=== PATIENT | male | born 1990 | race Caucasian/White ===

== ENCOUNTER 2020-10-10 22:40 | Emergency (ER) | payer OTHER, SELFPAY ==
[2020-10-10 22:48] VITALS: BP 152/81; PULSE 99; RESP 16; O2SAT 96; BMI 24.3
--- NOTE | 2020-10-10 23:46 | PC.NURSE ---
patient search was completed at this time by Security
--- NOTE | 2020-10-11 00:29 | ED.GENADULT ---
HPI - General Adult General Chief complaint: ETOH/Substance Use Stated complaint: seeking detox Time Seen by Provider: 10/10/20 23:21 Source: patient Mode of arrival: ambulatory Limitations: no limitations History of Present Illness HPI narrative: Patient presents to ED for repeat detox. Patient is requesting detox from heroin and cocaine. Patient states he has read on the methadone program. Patient states he wants to get back in to [facility]. Patient states he was there for 3 days and walked out on his own accord is self for feeling the program. Related Data Allergies Allergy/AdvReac Type Severity Reaction Status Date / Time haloperidol [From Haldol] AdvReac Involuntary Verified 10/10/20 22:56 Spasms Review of Systems Review of Systems: Yes all other systems are reviewed and are negative Constitutional: Constitutional: Reports as per HPI and Reports no additional constitutional complaints Eyes: Eyes: Reports as per HPI and Reports no additional eye complaints ENT: Reports system reviewed and no additional complaints, except as documented and Reports as per HPI Cardiovascular: Cardiovascular: Reports as per HPI and Reports no additional cardiovascular complaints Respiratory: Respiratory: Reports as per HPI and Reports no additional respiratory complaints Gastrointestinal: Gastrointestinal: Reports as per HPI and Reports no additional gastrointestinal complaints Genitourinary: Genitourinary: Reports no additional male genitourinary complaints and Reports as per HPI Musculoskeletal: Musculoskeletal: Reports no additional musculoskeletal complaints and Reports as per HPI Neurologic: Reports system reviewed and no additional complaints, except as documented and Reports as per HPI Psychiatric: Psychiatric: Reports no additional psychiatric complaints and Reports as per HPI [facility] Past Medical History Medical History (Updated 10/11/20 @ 01:16 by WOLF Bailey) Anxiety Depression HSV (herpes simplex virus) infection Opiate addiction PTSD (post-traumatic stress disorder) Social History Social History Advance Directives: No Advance Directives Information Provided: No Physical Exam Vital Signs: Vital Signs: Last Vital Signs Pulse 99 10/10/20 22:48 Resp 16 10/10/20 22:48 BP 152/81 H 10/10/20 22:48 Pulse Ox 96 10/10/20 22:48 Body Mass Index 24.3 Const: General: cooperative, healthy appearing, comfortable, no acute distress, well developed, alert, awake and Physically active Orientation/consciousness: patient oriented x3 HENMT: Head: Yes normal to inspection, Yes No palpable skull fracture present, Yes normocephalic, Yes atraumatic and No abrasion Eyes: General: appearance normal, both eyes and all related structures Neck: Neck: Yes normal visual inspection, Yes full ROM, Yes no lymphadenopathy, Yes no meningeal signs, Yes trachea midline, Yes supple and No tender Chest: Chest palpation & inspection: normal inspection of the chest and normal palpation of entire chest wall Resp: Effort & Inspection: normal respiratory effort and able to speak in complete sentences Auscultation: clear to auscultation bilaterally Cardio: Jugular venous distension: no JVD Heart sounds: S1 normal heart sound present and S2 normal heart sound present GI: Inspection: Yes normal to inspection and No abdominal wall ecchymosis Palpation (GI): Soft to palpation, not firm, nontender, no guarding and not rigid : General: No CVA tenderness and Yes no CVA tenderness Back/Spine/Pelvis: Back: no CVA tenderness, No CVA tenderness and No back tenderness Skin: General skin exam: no rashes or lesions noted and elasticity normal Neuro: General: patient oriented x3, no meningeal signs and CN's II-XI intact bilaterally Cranial nerves: Yes CN's II-XII intact bilaterally Extrem: General: Yes normal to inspection and Yes full ROM Psych: Appearance: grossly normal, well kempt and not disheveled Course Course Course Narrative: Recall her care team consulted to talk to patient. Reevaluation(s) Reevaluation #1: Care team consulted had other spoke with patient and given detox resources. She spoke with patient and he will get a bed in the morning at the detox center she given referral for. Patient is agreeable to plan. Patient will be discharged Medical Decision Making [facility] Narrative Medical decision making narrative: Seeking detox Discharge Plan Discharge Clinical Impression: Opiate dependence Patient Disposition: Home, Self-Care Instructions: Cocaine Abuse (ED), Opioid Use Disorder (ED) Additional Instructions: Return to the ED for any suicidal/homicidal ideation, auditory/visual hallucinations, physical complaints or any other concerning symptoms. Please follow-up with the detox center you given referral for. Print Language: Macedonian
--- NOTE | 2020-10-11 02:29 | MHC.CARE ---
Late entry: CARE team support requested for pt who self presented to ED requesting detox. Pt reported that he had been at [facility] detox for 3 days and left earlier today. Pt received a methadone dose prior to discharge from the facility. Pt is hoping to get back into a detox program, preferably [facility] again. This sign writer letterer or painter put pt on the waitlist for [facility] and encouraged pt to call at 8am. Pt was also given a list of detox facilities and pamphlet for [facility]. Pt very pleasant and grateful for the resources.
== END 2020-10-11 02:22 | disposition home or self-care (01) ==
PROVIDERS: Emergency Provider Emergency Medicine; PCP Obstetrics & Gynecology
DX: F11.20 Opioid dependence, uncomplicated (principal); F14.10 Cocaine abuse, uncomplicated; F41.9 Anxiety disorder, unspecified; F43.10 Post-traumatic stress disorder, unspecified
CPT/HCPCS: 99283

== ENCOUNTER 2020-12-17 14:26 | Emergency (ER) | payer OTHER, MEDICARE, SELFPAY ==
[2020-12-17 14:38] VITALS: BP 124/79; BP 180/80; PULSE 82; PULSE 88; RESP 16; O2SAT 95; BMI 27.8
--- NOTE | 2020-12-17 15:09 | ED.GENADULT ---
HPI - General Adult General Chief complaint: Psychiatric Symptoms Stated complaint: CRISIS Time Seen by Provider: 12/17/20 14:46 Source: patient Mode of arrival: ambulatory Limitations: no limitations History of Present Illness HPI narrative: 30-year-old male with a past medical history of substance abuse, PTSD, anxiety, depression here after altercation with family. The patient tells me that he was in detox but left voluntarily yesterday after being treated for 1 week for opiate abuse with methadone. He tells me his last dose of methadone was several days ago and it was 50 mg. He was on a methadone taper at that time. He tells me he went to his brother's house to product picker some things today and too surprising his family. They became very upset that he had left detox without letting them know. He then told me that after grabbing some things he started to walk away but they started to follow him with their car. He then told his mom to leave him alone or something bad could have been. Patient tells me that this was missed interpreted as a threat to walk out into traffic. Patient denies SI or HI. Denies hallucinations. Denies current substance use. No physical complaints. Related Data Home Medications Medication Instructions Recorded Confirmed quetiapine [Seroquel] 25 mg PO DAILY PRN 12/17/20 12/17/20 Allergies Allergy/AdvReac Type Severity Reaction Status Date / Time haloperidol [From Haldol] AdvReac Involuntary Verified 10/10/20 22:56 Spasms Review of Systems Review of Systems: Yes all other systems are reviewed and are negative Constitutional: Constitutional: Reports no additional constitutional complaints, Denies body ache(s), Denies chills, Denies fever(s), Denies headache(s) and Denies weakness Eyes: Eyes: Reports no additional eye complaints and Denies change in vision ENT: Reports system reviewed and no additional complaints, except as documented, Denies dizziness, Denies headache(s), Denies nasal congestion, Denies nasal discharge and Denies neck pain Cardiovascular: Cardiovascular: Reports no additional cardiovascular complaints, Denies chest pain, Denies leg edema and Denies dyspnea Respiratory: Respiratory: Reports no additional respiratory complaints, Denies cough and Denies dyspnea Gastrointestinal: Gastrointestinal: Reports no additional gastrointestinal complaints, Denies abdominal pain, Denies diarrhea, Denies nausea and Denies vomiting Genitourinary: Genitourinary: Denies urinary incontinence Musculoskeletal: Musculoskeletal: Reports no additional musculoskeletal complaints, Denies back pain, Denies arthralgias, Denies joint swelling, Denies neck pain, Denies numbness and Denies tingling Integumentary/Breasts: Skin/Breast: Reports system reviewed and no additional complaints, except as docu and Denies rash Neurologic: Reports system reviewed and no additional complaints, except as documented, Denies Abnormal speech present, Denies dizziness, Denies headache(s), Denies numbness, Denies tingling and Denies weakness Psychiatric: Psychiatric: Denies anxiety, Denies depression, Denies homicidal ideation and Denies suicidal ideation [facility] Past Medical History Attestation statement: The following information was validated with the patient. Source: nursing notes reviewed Medical History Anxiety Depression HSV (herpes simplex virus) infection Opiate addiction PTSD (post-traumatic stress disorder) Social History Social History Advance Directives: No Advance Directives Information Provided: No Physical Exam Vital Signs: Vital Signs: Last Vital Signs Pulse 88 12/17/20 14:38 Resp 16 12/17/20 14:38 BP 124/79 12/17/20 14:38 Pulse Ox 95 12/17/20 14:38 Body Mass Index 27.8 Const: Other: Unkept appearing General: cooperative Orientation/consciousness: patient oriented x3 Limitations: no limitations HENMT: Head: Yes normal to inspection Ears: hearing grossly normal bilaterally General nose exam: Normal external nose present Face and sinus: Yes normal facial exam Mouth: Normal oral and palatal mucosa present Throat: Yes posterior oropharynx normal Eyes: General: appearance normal, both eyes and all related structures Pupils: Equal, round and reactive pupils present Neck: Neck: Yes normal visual inspection Chest: Chest palpation & inspection: normal inspection of the chest Resp: Effort & Inspection: normal respiratory effort Auscultation: clear to auscultation bilaterally Cardio: Rate: regular rate Rhythm: regular rhythm Peripheral pulses: Peripheral pulses 2+ throughout GI: Inspection: Yes normal to inspection Palpation (GI): Soft to palpation and nontender Auscultation: normal bowel sounds Back/Spine/Pelvis: Thoracic/Lumbar Spine: thoracic and lumbar spine normal to inspection Skin: General skin exam: no rashes or lesions noted Neuro: General: patient oriented x3, no focal motor deficits and normal sensation to monofilament Cranial nerves: Yes Equal, round and reactive pupils present Cognition (Neuro): normal cognition Speech: No Abnormal speech present Gait exam (Neuro): Normal gait present Motor exam (neuro): 5/5 motor strength present throughout Extrem: General: Yes normal to inspection Course Course Course Narrative: 30-year-old male here after verbal altercations family. Per EMS report the patient made threats to walk into traffic. The patient denies this and tells me it was misinterpreted. He denies any SI or physical complaints. Will check [facility] and have Care team to get involved to collect collateral information and speak to patient. 1700-Sign out to care team pending above Medical Decision Making Medical Records Medical records reviewed: Yes I reviewed the patient's medical records. Lab Data Lab results reviewed: Yes I reviewed the patient's lab results. Labs: Lab Results 12/17/20 Range/Units 15:02 Urine Opiates Screen POSITIVE H (Not Detect) Ur Barbiturates Screen Not Detected (Not Detect) Ur Phencyclidine Scrn Not Detected (Not Detect) Ur Amphetamines Screen Not Detected (Not Detect) U Benzodiazepines Scrn Not Detected (Not Detect) Urine Cocaine Screen POSITIVE H (Not Detect) U Marijuana (THC) Screen Not Detected (Not Detect) Discharge Plan Discharge Prescriptions: No Action quetiapine [Seroquel] 25 mg Tablet 25 mg PO DAILY PRN (Reason: Anxiety) RF: 0
[2020-12-17 15:34] LABS: Amphetamine Screen Urine Not Detected (Not Detect); Barbiturates, Urine Not Detected (Not Detect); Benzodiazepines Screen Urine Not Detected (Not Detect); Cannabinoid Screen Urine Not Detected (Not Detect); Cocaine Screen Urine POSITIVE (Not Detect); Opiate Screen Urine POSITIVE (Not Detect); Phencyclidine Screen Urine Not Detected (Not Detect)
--- NOTE | 2020-12-17 17:28 | MHC.CARE ---
CARE team consult requested for pt who arrived to ED via EMS after his family called PD for concerns re: statements pt made. Per report- pt went to his mother's house to get some of his belongings, surprising his family members there because they had expected him to still be in detox at the [facility]. Pt stated that he left AMA earlier in the week, relapsed a few days later, and has decided that he needs to move out of the area in order to get into recovery. When pt arrived, he reported that his mother and brother were following him out of the house and arguing with him, at which point pt reported saying stop following me, I'm trying to leave and I don't want to get hit by a car. Pt speculated that because he said this in Wallisian to his mother, which she translated in North Korean to his brother who wasn't within earshot, that it was a miscommunication that caused his family to believe that he was planning to get hit by a car. Pt denied having any thoughts of suicide and , urges to harm self or others, and history of such. Pt reported that when he was at the [facility] he was restarted on methadone, which he receives maintenance doses through [facility] [place] (did not specify if [place] or [place] location). Pt has missed his last few doses due to him relapsing a few days after leaving treatment. Pt shared that he is planning on getting a hotel in [place] and self presenting to a [place] hospital there for treatment, with hopes of eventually getting down to [place] where his daughter lives with her mother. Pt declined recovery resources at this time. This resume writer encouraged pt to utilize the [facility], where he receives his care locally, in facilitating a transfer/admission to the facility nearest to where pt is planning to relocate to. There are no safety concerns at this time. Pt was offered a ride home, which he declined. ED provider updated re: outcome of consult, with plan for discharge from ED.
== END 2020-12-17 17:21 | disposition home or self-care (01) ==
PROVIDERS: Nurse Practitioner Family; Emergency Provider Emergency Medicine Emergency Medical Services; PCP Internal Medicine
DX: F33.1 Major depressive disorder, recurrent, moderate (principal); F43.10 Post-traumatic stress disorder, unspecified; F11.10 Opioid abuse, uncomplicated; Z79.899 Other long term (current) drug therapy; Z71.51 Drug abuse counseling and surveillance of drug abuser; Z63.79 Other stressful life events affecting family and household
CPT/HCPCS: 80307; 99284

== ENCOUNTER 2021-07-10 19:17 | Emergency (ER) | payer OTHER, MEDICARE, SELFPAY ==
[2021-07-10 20:24] VITALS: BP 127/70; PULSE 88; RESP 16; TEMP 36.6; O2SAT 98; BMI 25.1
--- NOTE | 2021-07-10 21:27 | ED.GENADULT ---
HPI - General Adult General Chief complaint: General Medical Stated complaint: seeking detox Time Seen by Provider: 07/10/21 21:27 Source: patient Mode of arrival: ambulatory Limitations: no limitations History of Present Illness HPI narrative: 31-year-old male with a past medical history of substance abuse, PTSD, anxiety, depression presenting to the emergency department to request rehab. He tells me that he has been using heroin and cocaine IV for the past 5 years and he feels like he needs to stop because it is getting in the way with his daily life, is causing issues with his family, any tells me that with the holiday season coming he feels like this is the right time to do this. He typically uses 2 bundles of heroin a day, and 1 g of cocaine. He is a current daily smoker and smokes 1 pack per day. He does not consume alcohol. He has been to detox once, and he was sober 3 months afterwards, he feels like detox would benefit him at this point in his life. He also tells me that he wants to work hard on becoming sober because he has a daughter in [place] he would like to see. He denies visual, auditory and tactile hallucinations. He denies suicidal and homicidal ideation. He has no medical complaints at this time. Onset (ago): year(s) (5) Radiation: non-radiation Relieving factors: none Exacerbating factors: none Associated symptoms: denies other symptoms Treatments prior to arrival: none Related Data Home Medications Medication Instructions Recorded Confirmed quetiapine 25 mg tablet (Seroquel) 25 mg PO DAILY PRN 12/17/20 12/17/20 Allergies Allergy/AdvReac Type Severity Reaction Status Date / Time haloperidol [From Haldol] AdvReac Involuntary Verified 10/10/20 22:56 Spasms Review of Systems Review of Systems: Constitutional : No Fever, No Chills ENT/Mouth : No sore throat, No Rhinorrhea Eyes: No Eye Pain, No Swelling, No Redness Cardiovascular : No Chest Pain, No SOB Respiratory : No Cough, No Sputum Gastrointestinal : No Nausea, No Vomiting, No Diarrhea, No abdominal Pain Genitourinary : No Dysuria, No Hematuria Musculoskeletal : No joint pain, No Myalgias, No Joint Swelling Skin : No Skin Lesions, No rash Neuro : No Weakness, No Numbness Psych : No Anxiety, No Depression, No SI/HI/AH/VH Heme/Lymph: No Bruising, No Bleeding Endocrine : No Polyuria, No Polydipsia All other systems reviewed and are negative Yes all other systems are reviewed and are negative [facility] Past Medical History Attestation statement: The following information was validated with the patient. Source: old records reviewed and nursing notes reviewed Medical History Anxiety Depression HSV (herpes simplex virus) infection Opiate addiction PTSD (post-traumatic stress disorder) Social History Social History Advance Directives: No Advance Directives Information Provided: No Physical Exam Vital Signs: Vital Signs: Last Vital Signs Temp 97.9 F 07/10/21 20:24 Pulse 88 07/10/21 20:24 Resp 16 07/10/21 20:24 BP 127/70 07/10/21 20:24 Pulse Ox 98 07/10/21 20:24 BMI result Body Mass Index 25.1 VSS Appearance: Alert.? Oriented X3.? No acute distress.? Head: Normocephalic, atraumatic, no step-offs or deformities Eyes: Pupils equal, round and reactive to light.? ENT: Pharynx normal.? Neck: Normal inspection.? Neck supple.? CVS: Normal heart rate and rhythm.? Pulses normal.? Respiratory: No respiratory distress.? Breath sounds normal.? Abdomen: Soft and nontender.? Skin: Skin warm and dry.? Normal skin color.? Normal skin turgor.? Extremities: No lower extremity edema.5/5 strength to bilateral upper and lower extremities Back: No midline tenderness, no C-spine tenderness, full range of motion, no CVA tenderness bilaterally Neuro: Oriented X 3.? No motor deficit.? No sensory deficit. CN 2-12 intact Course Reevaluation(s) Reevaluation #1: Patient is COVID negative. Urine toxicology positive for opiates, fentanyl, benzodiazepines and cocaine. Carline from CARE team reached out to [facility] and all are Either close, full or the admission have to be coordinated in the morning. At this time patient will be placed in physician observation to allow more time for care team to help place patient in a detox facility. At time that physician observation was started patient was, and cooperative and had no medical complaints. Physical examination benign. Cranial nerves 2-12 intact. Time: 22:47 Reevaluation #2: No acute laboratory abnormalities. Medical Decision Making MDM Narrative Medical decision making narrative: 2133 31 yo M pmhx substance abuse, PTSD, anxiety, depression presents to ED seeking detox from heroin and cocaine. Physical examination benign. Cranial nerves 2-12 intact. Plan at this time is to obtain a urine toxicology and COVID test. Medical Records Medical records reviewed: Yes I reviewed the patient's medical records. Lab Data Lab results reviewed: Yes I reviewed the patient's lab results. Result diagrams: 07/10/21 23:16 07/10/21 23:16 Labs: Lab Results 07/10/21 07/10/21 07/10/21 Range/Units 22:14 22:14 23:16 WBC 6.8 (4.8-10.8) X10*3/uL RBC 4.46 L (4.60-5.80) X10*6/uL Hgb 13.4 L (14.0-18.0) g/dl Hct 39.4 L (42.0-52.0) % MCV 88.3 (80.0-98.0) fL MCH 30.0 (27.0-33.0) pg MCHC 34.0 (31.0-36.0) g/dl RDW 12.9 (11.0-16.0) % Plt Count 292 (160-400) X10*3/uL MPV 9.1 L (9.4-12.4) fL Immature Gran % (Auto) 0.3 (0.0-0.4) % Neut % (Auto) 49.8 (45-73) % Lymph % (Auto) 38.2 (20-40) % [place] % (Auto) 9.4 (2-11) % Eos % (Auto) 1.9 (0-4) % Baso % (Auto) 0.4 (0-2) % Lymph # (Auto) 2.6 (1.2-4.9) X10*3/uL [place] # (Auto) 0.6 (0.1-1.2) X10*3/uL Eos # (Auto) 0.1 (0.0-0.4) X10*3/uL Baso # (Auto) 0.0 (0.0-0.2) X10*3/uL Abs Immat Gran (auto) 0.02 (0.00-0.03) X10*3/uL Absolute Neuts (auto) 3.4 (2.0-8.3) x10*3/uL Absolute Nucleated RBC 0.000 (0.0-0.012) X10*3/uL Nucleated RBC % (auto) 0.0 (0.0-0.2) /100WBC Sodium (135-145) mmol/L Potassium (3.3-5.1) mmol/L Chloride (96-108) mmol/L Carbon Dioxide (22-29) mmol/L Anion Gap (12-20) BUN (9-16) mg/dL Creatinine (0.5-1.4) mg/dL Estim Creat Clear Calc Estimated GFR Random Glucose (60-115) mg/dL Calcium (8.4-10.2) mg/dL Urine Opiates Screen POSITIVE H (Not Detect) Urine Fentanyl Screen POSITIVE H (Not Detect) Ur Barbiturates Screen Not Detected (Not Detect) Ur Phencyclidine Scrn Not Detected (Not Detect) Ur Amphetamines Screen Not Detected (Not Detect) U Benzodiazepines Scrn POSITIVE H (Not Detect) Urine Cocaine Screen POSITIVE H (Not Detect) U Marijuana (THC) Screen Not Detected (Not Detect) COVID-19 (CAL) Negative (Negative) COVID-19 Clin Com See Note 07/10/21 Range/Units 23:16 WBC (4.8-10.8) X10*3/uL RBC (4.60-5.80) X10*6/uL Hgb (14.0-18.0) g/dl Hct (42.0-52.0) % MCV (80.0-98.0) fL MCH (27.0-33.0) pg MCHC (31.0-36.0) g/dl RDW (11.0-16.0) % Plt Count (160-400) X10*3/uL MPV (9.4-12.4) fL Immature Gran % (Auto) (0.0-0.4) % Neut % (Auto) (45-73) % Lymph % (Auto) (20-40) % [place] % (Auto) (2-11) % Eos % (Auto) (0-4) % Baso % (Auto) (0-2) % Lymph # (Auto) (1.2-4.9) X10*3/uL [place] # (Auto) (0.1-1.2) X10*3/uL Eos # (Auto) (0.0-0.4) X10*3/uL Baso # (Auto) (0.0-0.2) X10*3/uL Abs Immat Gran (auto) (0.00-0.03) X10*3/uL Absolute Neuts (auto) (2.0-8.3) x10*3/uL Absolute Nucleated RBC (0.0-0.012) X10*3/uL Nucleated RBC % (auto) (0.0-0.2) /100WBC Sodium 140 (135-145) mmol/L Potassium 3.9 (3.3-5.1) mmol/L Chloride 104 (96-108) mmol/L Carbon Dioxide 29 (22-29) mmol/L Anion Gap 11 L (12-20) BUN 14 (9-16) mg/dL Creatinine 0.77 (0.5-1.4) mg/dL Estim Creat Clear Calc 143.5 Estimated GFR > 60 Random Glucose 99 (60-115) mg/dL Calcium 9.2 (8.4-10.2) mg/dL Urine Opiates Screen (Not Detect) Urine Fentanyl Screen (Not Detect) Ur Barbiturates Screen (Not Detect) Ur Phencyclidine Scrn (Not Detect) Ur Amphetamines Screen (Not Detect) U Benzodiazepines Scrn (Not Detect) Urine Cocaine Screen (Not Detect) U Marijuana (THC) Screen (Not Detect) COVID-19 (CAL) (Negative) COVID-19 Clin Com Critical Care Time Critical Care Time Critical Care Time: No Discharge Plan Discharge Clinical Impression: Opiate dependence, continuous, Cocaine abuse Patient Disposition: Still a Patient Instructions: Cocaine Abuse (ED), Opioid Use Disorder (ED) Additional Instructions: Take your medications as prescribed. If you were prescribed antibiotics today, it is important that you take your medication to their entirety, do not skip any doses, do not finish them early. Follow-up with your primary care provider this week. Return to the emergency department with new or worsening symptoms. In case of emergency call 911 Prescriptions: No Action quetiapine [Seroquel] 25 mg Tablet 25 mg PO DAILY PRN (Reason: Anxiety) RF: 0 Referrals: Spenser Majano [Primary Care Provider] - 2 days Stand Alone Forms: Work/School Release
[2021-07-10 22:38] LABS: Amphetamine Screen Urine Not Detected (Not Detect); Barbiturates, Urine Not Detected (Not Detect); Benzodiazepines Screen Urine POSITIVE (Not Detect); Cannabinoid Screen Urine Not Detected (Not Detect); Cocaine Screen Urine POSITIVE (Not Detect); Fentanyl, urine POSITIVE (Not Detect); Opiate Screen Urine POSITIVE (Not Detect); Phencyclidine Screen Urine Not Detected (Not Detect)
[2021-07-10 22:41] LABS: COVID-19 Test Negative (Negative); IDNOW Serial# 55D5AD1C
--- NOTE | 2021-07-10 22:42 | MHC.CARE ---
CARE team support requested for the pt who self presented to ED at the recommendation of an credentialing coordinator at the [facility] for medical clearance for detox admission. Due to patient volume in the ED he was in the waiting room for 2 hours. This advertising copywriter contacted: [facility] [phone]- they did have two beds, however they are unable to accept admissions this evening, as their unit has since been placed under observation [facility] [phone]- unit is closed due to covid outbreak [facility] [phone]- no available beds [facility] [phone] - unit is closed due to covid outbreak [facility] [phone]- no available beds [facility] ([place]) [phone]- admissions need to be coordinated in the morning/during the day [facility] ([place]) [phone]- admissions need to be coordinated in the morning/during the day ED provider is agreeable to patient remaining in ED overnight with plan for [facility]. CARE/Recovery team will resume bed search in the morning.
[2021-07-10 23:22] LABS: Basophils Percent Auto 0.4 % (0-2); Eosinophils Absolute Auto 0.1 X10*3/uL (0.0-0.4); Eosinophils Percent Auto 1.9 % (0-4); Hematocrit 39.4 % (42.0-52.0); Hemoglobin 13.4 g/dl (14.0-18.0); Imm Gran Abs Auto 0.02 X10*3/uL (0.00-0.03); Imm Gran Pct Auto 0.3 % (0.0-0.4); Lymphocytes Absolute Auto 2.6 X10*3/uL (1.2-4.9); Lymphocytes Percent Auto 38.2 % (20-40); MANUAL DIFF FLAG NO; Mean Corpuscular Volume 88.3 fL (80.0-98.0); Mean Platelet Volume 9.1 fL (9.4-12.4); Monocytes Absolute Auto 0.6 X10*3/uL (0.1-1.2); Monocytes Percent Auto 9.4 % (2-11); Neutrophils Absolute Auto 3.4 x10*3/uL (2.0-8.3); Neutrophils Percent Auto 49.8 % (45-73); Platelet Count 292 X10*3/uL (160-400); Red Blood Count 4.46 X10*6/uL (4.60-5.80); Red Cell Distribution Width 12.9 % (11.0-16.0); White Blood Count 6.8 X10*3/uL (4.8-10.8)
[2021-07-10 23:41] LABS: Anion Gap 11 (12-20); Blood Urea Nitrogen 14 mg/dL (9-16); Calcium 9.2 mg/dL (8.4-10.2); Carbon Dioxide 29 mmol/L (22-29); Chloride 104 mmol/L (96-108); Creatinine Clr Calc Pharmacy 143.5; Estimated Glomerular Filt Rate > 60; Glucose Random 99 mg/dL (60-115); Potassium 3.9 mmol/L (3.3-5.1); Sodium 140 mmol/L (135-145)
[2021-07-11 00:46] VITALS: BP 135/77; PULSE 92; RESP 16; TEMP 36.7; O2SAT 99
--- NOTE | 2021-07-11 01:14 | PC.NURSE ---
PT MOVED TO [facility]. WAITING FOR DETOX BED.
[2021-07-11 01:41] LABS: Ethanol < 10 mg/dL
--- NOTE | 2021-07-11 06:12 | PC.NURSE ---
Patient slept through the night, no distress observed/reported, behavior appropriate and cooperative, patient will be assessed by football coach in the morning, patient is seeking detoc help, will continue to monitor.
--- NOTE | 2021-07-11 07:23 | PC.NURSE ---
patient appears to remain at rest at present respiratiuons are even and unlabored, patient appears in no distress
[2021-07-11 10:21] VITALS: BP 131/89; PULSE 80; RESP 16; TEMP 36.6; O2SAT 99
--- NOTE | 2021-07-11 13:35 | MHC.RECOVSUP ---
? Reason for consult:Recovery Support o Current location:Discarged o Identified substance use concern: Polysubstance - Withdrawal - Seeking ATS (detox) - Support ? Intervention: o ATS bed search started/completed/in process o Community resources provided o Harm reduction discussion ? Plan: o Bed search in progress o ? Additional information: Patient went to [facility], where once there he would be told to go to [facility]. ? Reason for consult: o Current location: o Identified substance use concern: - Overdose - Withdrawal - Seeking ATS (detox) - Support ? Intervention: o ATS bed search started/completed/in process o MAT started or to be started o Community resources provided o Harm reduction discussion ? Plan: o Referral to [facility] o Bed search in progress to o Follow up tomorrow o Patient awaiting crisis evaluation o Patient to follow up with [facility] after discharge ? Additional information:
== END 2021-07-11 12:18 | disposition home or self-care (01) ==
PROVIDERS: Physician Assistant; Emergency Provider Emergency Medicine; PCP Internal Medicine
DX: F11.20 Opioid dependence, uncomplicated (principal); F14.10 Cocaine abuse, uncomplicated; F41.9 Anxiety disorder, unspecified; F32.A Depression, unspecified; F43.10 Post-traumatic stress disorder, unspecified; F17.200 Nicotine dependence, unspecified, uncomplicated; Z20.822 Contact with and (suspected) exposure to COVID-19
CPT/HCPCS: 36415; 80048; 80307; 82077; 85025; 87635; 99284